=== PATIENT | female | born 1950 | race Caucasian/White ===

== ENCOUNTER 2021-03-26 03:29 | Inpatient (IN) ==
[2021-03-26] MEDS ORDERED: Naloxone 0.4 MG/ML INJ IVP PRN (05:38)
[2021-03-26] MEDS ORDERED: Melatonin 3 MG TABLET PO PRN (05:38)
[2021-03-26] MEDS ORDERED: Ondansetron 4 MG/2 ML VIAL IVP PRN (05:38)
[2021-03-26] MEDS ORDERED: Morphine Sulfate 2 MG/ML SYRINGE IVP PRN (05:46)
[2021-03-26] MEDS ORDERED: Nitroglycerin 0.4 MG TAB.SUBL SL PRN (05:46)
[2021-03-26] MEDS ORDERED: Perflutren Lipid Microsphere 1.3 ML in 0.9 % Sodium Chloride 8.7 ML IVP PRN (05:55)
[2021-03-26] MEDS ORDERED: *HR* Heparin 5,000 UNIT/ML VIAL IVP PRN ×2 (05:56)
[2021-03-26 06:50] LABS: Basophils % 0.3 %; Eosinophils # 0.1 K/mcL (0.0-0.6); Eosinophils % 1.8 %; Hematocrit 38.3 % (35.3-44.9); Immature Granulocytes % 0.3 % (0-4); Lymphocytes # 0.9 K/mcL (0.6-4.6); Lymphocytes % 14.5 %; Mean Corpuscular HGB Conc 33.9 g/dL (31.6-35.5); Mean Corpuscular Hemoglobin 32.5 pg (28.0-33.3); Mean Corpuscular Volume 95.8 fL (83.0-100.0); Mean Platelet Volume 11.3 fL (9.4-12.4); Monocytes # 0.4 K/mcL (0.0-1.3); Monocytes % 5.6 %; Neutrophils # 4.9 K/mcL (1.6-8.9); Platelet Count 176 K/mcL (140-400); Red Cell Distribution Width 12.4 % (11.5-14.5); Segmented Neutrophils % 77.5 %; White Blood Count 6.3 K/mcL (4.3-11.1)
[2021-03-26 06:59] LABS: INR 1.2; Prothrombin Time 13.8 Seconds (9.4-12.1)
[2021-03-26 07:16] LABS: Alanine Aminotransferase 20 Units/L (7-52); Albumin 3.8 g/dL (3.5-5.7); Albumin/Globulin Ratio 1.8 (1.1-2.2); Alkaline Phosphatase 70 Units/L (34-104); Aspartate Amino Transferase 42 Units/L (13-39); BUN/Creatinine Ratio 20 (6-26); Bilirubin,Total 0.4 mg/dL (0.3-1.0); Blood Urea Nitrogen 14 mg/dL (8-23); Calcium 9.6 mg/dL (8.6-10.3); Carbon Dioxide 25 mEq/L (23-29); Chloride 107 mEq/L (98-107); Chol/HDL Ratio 2.8 (0-4.9); Cholesterol 166 mg/dL (< 200); Globulin 2.1 g/dL (2.4-3.5); Glucose 123 mg/dL (70-105); HDL Cholesterol 59 mg/dL (40-59); LDL Cholesterol,Calculated 100 mg/dL (< 100); Osmolality,Calculated 288 (280-300); Potassium 4.1 mEq/L (3.5-5.1); Sodium 138 mEq/L (136-145); Total Protein 5.9 g/dL (6.4-8.9); Triglycerides 34 mg/dL (< 150); Troponin I 0.47 ng/mL (< 0.04); eGFR For African Americans > 60 (> 60); eGFR For Non-African Americans > 60 (> 60)
[2021-03-26] MEDS: Heparin 25,000UNIT/250ML 1/2NS 25,000 UNIT/250 ML IV.SOLN IVC SCH (07:19)
[2021-03-26 07:36] LABS: Activated Partial Thrombo Time > 360.0 Seconds (26.0-36.0)
[2021-03-26] MEDS: Aspirin 81 MG TAB.CHEW PO SCH (08:43)
[2021-03-26] MEDS: rOPINIRole 0.25 MG TABLET PO SCH (19:34)
[2021-03-26] MEDS: Acetaminophen 325 MG TABLET PO PRN (20:03)
[2021-03-26 20:29] LABS: Bilirubin,Urine Negative (Negative); Blood,Urine Trace (Negative); Clarity,Urine Clear (Clear); Color,Urine Light-Yellow (Yellow); Glucose,Urine (UA) Normal (Normal); Ketones,Urine Negative (Negative); Leukocyte Esterase,Urine Small (Negative); Mucus,Urine Few per lpf (None-Few); Nitrite,Urine Negative (Negative); Protein,Urine Negative (Neg-Trace); RBC,Urine 0-3 per hpf (0-3); Specific Gravity,Urine 1.023 (1.010-1.025); Squamous Epithelial Cell,Urine Few per hpf (None-Few); Urobilinogen,Urine Normal (Normal); WBC,Urine 15-30 per hpf (0-3)
[2021-03-27 02:58] LABS: Hematocrit 37.2 % (35.3-44.9); Hemoglobin 12.5 g/dL (11.5-15.4); Mean Corpuscular HGB Conc 33.6 g/dL (31.6-35.5); Mean Corpuscular Hemoglobin 32.6 pg (28.0-33.3); Mean Corpuscular Volume 97.1 fL (83.0-100.0); Mean Platelet Volume 11.5 fL (9.4-12.4); Platelet Count 164 K/mcL (140-400); Red Blood Count 3.83 M/mcL (3.82-4.97); Red Cell Distribution Width 12.6 % (11.5-14.5)
[2021-03-27 03:19] LABS: BUN/Creatinine Ratio 21 (6-26); Blood Urea Nitrogen 15 mg/dL (8-23); Calcium 9.8 mg/dL (8.6-10.3); Carbon Dioxide 29 mEq/L (23-29); Chloride 107 mEq/L (98-107); Glucose 100 mg/dL (70-105); Osmolality,Calculated 287 (280-300); Phosphorous 3.3 mg/dL (2.7-4.5); Potassium 4.1 mEq/L (3.5-5.1); Sodium 138 mEq/L (136-145); eGFR For African Americans > 60 (> 60); eGFR For Non-African Americans > 60 (> 60)
[2021-03-27] MEDS: Loratadine 10 MG TABLET PO SCH (08:01)
[2021-03-27] MEDS: Aspirin 81 MG TAB.CHEW PO SCH (08:01)
[2021-03-27] MEDS: Multivit/Ca/Min/Fe/FA 1 TAB TABLET PO SCH (08:01)
[2021-03-27] MEDS: Cholecalciferol (D-3) 1,000 UNIT (25MCG) TABLET PO SCH (08:01)
[2021-03-27] MEDS: Acetaminophen 325 MG TABLET PO PRN (08:03)
[2021-03-27] MEDS ORDERED: Aspirin Enteric Coated 81 MG Tablet PO SCH (09:00)
[2021-03-27] MEDS: rOPINIRole 0.25 MG TABLET PO SCH (20:23)
[2021-03-28 05:32] LABS: Hematocrit 39.9 % (35.3-44.9); Mean Corpuscular HGB Conc 32.6 g/dL (31.6-35.5); Mean Corpuscular Hemoglobin 31.6 pg (28.0-33.3); Mean Corpuscular Volume 96.8 fL (83.0-100.0); Mean Platelet Volume 11.2 fL (9.4-12.4); Platelet Count 171 K/mcL (140-400); Red Blood Count 4.12 M/mcL (3.82-4.97); Red Cell Distribution Width 12.5 % (11.5-14.5); White Blood Count 6.1 K/mcL (4.3-11.1)
[2021-03-28 05:50] LABS: BUN/Creatinine Ratio 19 (6-26); Blood Urea Nitrogen 15 mg/dL (8-23); Carbon Dioxide 29 mEq/L (23-29); Chloride 105 mEq/L (98-107); Glucose 87 mg/dL (70-105); Osmolality,Calculated 286 (280-300); Potassium 3.9 mEq/L (3.5-5.1); Sodium 138 mEq/L (136-145); eGFR For African Americans > 60 (> 60); eGFR For Non-African Americans > 60 (> 60)
[2021-03-28 08:04] LABS: Estimated Average Glucose 100 mg/dl; Hemoglobin A1C 5.1 %
[2021-03-28] MEDS: Aspirin 81 MG TAB.CHEW PO SCH (08:31)
[2021-03-28] MEDS: Loratadine 10 MG TABLET PO SCH (08:32)
[2021-03-28] MEDS: Multivit/Ca/Min/Fe/FA 1 TAB TABLET PO SCH (08:32)
[2021-03-28] MEDS: Cholecalciferol (D-3) 1,000 UNIT (25MCG) TABLET PO SCH (08:32)
[2021-03-28] MEDS ORDERED: D5% in Water 1,000 ML IVC PRN (12:47)
[2021-03-28] MEDS ORDERED: *HR* Dextrose 50 % in Water (Vial) 50 ML VIAL IVP PRN (12:47)
[2021-03-28] MEDS ORDERED: Dextrose Gel 15 GM/37.5 ML TUBE PO PRN ×2 (12:47)
[2021-03-28] MEDS: Heparin 25,000UNIT/250ML 1/2NS 25,000 UNIT/250 ML IV.SOLN IVC SCH ×2 (13:26→21:43)
[2021-03-28] MEDS ORDERED: Nitroglycerin 1,000 MCG/5 ML VIAL IV ONE (13:33)
[2021-03-28] MEDS ORDERED: *HR* Heparin 10,000 UNIT/10 ML VIAL ONE (13:33)
[2021-03-28] MEDS ORDERED: ISOVUE-370 200 ML INFUS..BTL ONE (13:33)
[2021-03-28] MEDS ORDERED: 0.9 % Sodium Chloride 2,000 ML ONE (13:33)
[2021-03-28] MEDS ORDERED: Heparin 1,000 UNITS/500 mL 500 ML ONE (13:33)
[2021-03-28] MEDS ORDERED: *HR* FentaNYL (PF) 100 MCG/2 ML VIAL ONE (13:39)
[2021-03-28] MEDS ORDERED: *HR* Midazolam HCl 2 MG/2 ML VIAL ONE (13:39)
[2021-03-28] MEDS: Apixaban 5 MG TABLET PO SCH (21:23)
[2021-03-28] MEDS: rOPINIRole 0.25 MG TABLET PO SCH (21:23)
[2021-03-29 03:54] LABS: Hematocrit 39.6 % (35.3-44.9); Hemoglobin 13.3 g/dL (11.5-15.4); Mean Corpuscular HGB Conc 33.6 g/dL (31.6-35.5); Mean Corpuscular Hemoglobin 32.6 pg (28.0-33.3); Mean Corpuscular Volume 97.1 fL (83.0-100.0); Mean Platelet Volume 11.4 fL (9.4-12.4); Platelet Count 161 K/mcL (140-400); Red Blood Count 4.08 M/mcL (3.82-4.97); Red Cell Distribution Width 12.5 % (11.5-14.5); White Blood Count 6.6 K/mcL (4.3-11.1)
[2021-03-29 04:15] LABS: BUN/Creatinine Ratio 20 (6-26); Blood Urea Nitrogen 15 mg/dL (8-23); Calcium 9.8 mg/dL (8.6-10.3); Carbon Dioxide 24 mEq/L (23-29); Chloride 106 mEq/L (98-107); Glucose 83 mg/dL (70-105); Magnesium 2.1 mg/dL (1.6-2.6); Osmolality,Calculated 284 (280-300); Potassium 4.3 mEq/L (3.5-5.1); Sodium 137 mEq/L (136-145); eGFR For African Americans > 60 (> 60); eGFR For Non-African Americans > 60 (> 60)
[2021-03-29 06:39] VITALS: BP 95/63
[2021-03-29] MEDS: Cholecalciferol (D-3) 1,000 UNIT (25MCG) TABLET PO SCH (07:58)
[2021-03-29] MEDS: Multivit/Ca/Min/Fe/FA 1 TAB TABLET PO SCH (07:58)
[2021-03-29] MEDS: Apixaban 5 MG TABLET PO SCH (07:58)
[2021-03-29] MEDS: Loratadine 10 MG TABLET PO SCH (07:59)
[2021-03-29] MEDS ORDERED: Sennosides/Docusate Sodium TABLET PO PRN (08:18)
== END 2021-03-29 13:15 | disposition home or self-care (01) | DRG 282 ==
LOC: 2NENU → SUATTDRO 05:29
PROVIDERS: ADMIT Student in an Organized Health Care Education/Training Program; ATTEND Internal Medicine

== ENCOUNTER 2021-07-26 11:31 | Observation (INO) ==
[2021-07-26] MEDS ORDERED: 0.9 % Sodium Chloride 1,000 ML IVC ONE (12:07)
[2021-07-26 14:37] LABS: Basophils % 0.7 %; Eosinophils # 0.4 K/mcL (0.0-0.6); Eosinophils % 9.4 %; Hematocrit 32.4 % (35.3-44.9); Hemoglobin 10.7 g/dL (11.5-15.4); Immature Granulocytes % 0.2 % (0-4); Lymphocytes # 1.2 K/mcL (0.6-4.6); Lymphocytes % 27.2 %; Mean Corpuscular Hemoglobin 32.3 pg (28.0-33.3); Mean Corpuscular Volume 97.9 fL (83.0-100.0); Mean Platelet Volume 11.2 fL (9.4-12.4); Monocytes # 0.3 K/mcL (0.0-1.3); Monocytes % 6.4 %; Neutrophils # 2.6 K/mcL (1.6-8.9); Platelet Count 162 K/mcL (140-400); Red Blood Count 3.31 M/mcL (3.82-4.97); Red Cell Distribution Width 12.8 % (11.5-14.5); Segmented Neutrophils % 56.1 %; White Blood Count 4.6 K/mcL (4.3-11.1)
[2021-07-26 15:00] LABS: INR 1.1; Prothrombin Time 12.2 Seconds (9.4-12.1)
[2021-07-26 15:02] LABS: Activated Partial Thrombo Time 27.6 Seconds (26.0-36.0)
[2021-07-26] MEDS ORDERED: *HR* Propofol 200 MG/20 ML VIAL IVP ONE ×2 (15:21→16:24)
[2021-07-26] MEDS ORDERED: Lidocaine -MPF 2% 5 ML VIAL ONE (15:22)
[2021-07-26 15:46] LABS: Alanine Aminotransferase 5 Units/L (7-52); Albumin 3.4 g/dL (3.5-5.7); Albumin/Globulin Ratio 1.9 (1.1-2.2); Alkaline Phosphatase 58 Units/L (34-104); Aspartate Amino Transferase 12 Units/L (13-39); BUN/Creatinine Ratio 18 (6-26); Bilirubin,Total 0.4 mg/dL (0.3-1.0); Blood Urea Nitrogen 10 mg/dL (8-23); Carbon Dioxide 25 mEq/L (23-29); Chloride 111 mEq/L (98-107); Globulin 1.8 g/dL (2.4-3.5); Glucose 96 mg/dL (70-105); Osmolality,Calculated 291 (280-300); Potassium 4.2 mEq/L (3.5-5.1); Sodium 141 mEq/L (136-145); Total Protein 5.2 g/dL (6.4-8.9); Troponin I < 0.03 ng/mL (< 0.04); eGFR For African Americans > 60 (> 60); eGFR For Non-African Americans > 60 (> 60)
[2021-07-26] MEDS ORDERED: Ondansetron 4 MG/2 ML VIAL IVP PRN (16:05)
[2021-07-26] MEDS ORDERED: Naloxone 0.4 MG/ML INJ IVP PRN (16:05)
[2021-07-26] MEDS ORDERED: *HR* EPINEPHrine 1 MG/10 ML SYRINGE INTRATRACH PRN (16:30)
[2021-07-26] MEDS: Pantoprazole 40 MG VIAL IVP SCH (16:56)
[2021-07-26] MEDS: 0.9 % Sodium Chloride 1,000 ML IVC SCH (16:56)
[2021-07-26 17:39] LABS: Calcium 8.9 mg/dL (8.6-10.3)
[2021-07-26] MEDS: rOPINIRole 0.25 MG TABLET PO SCH (19:53)
[2021-07-27] MEDS: 0.9 % Sodium Chloride 1,000 ML IVC SCH (02:48)
[2021-07-27 02:50] LABS: Basophils % 0.6 %; Eosinophils # 0.5 K/mcL (0.0-0.6); Eosinophils % 10.8 %; Hematocrit 23.9 % (35.3-44.9); Hemoglobin 7.6 g/dL (11.5-15.4); Immature Granulocytes % 0.4 % (0-4); Lymphocytes # 1.6 K/mcL (0.6-4.6); Lymphocytes % 32.3 %; Mean Corpuscular HGB Conc 31.8 g/dL (31.6-35.5); Mean Corpuscular Volume 97.6 fL (83.0-100.0); Mean Platelet Volume 11.6 fL (9.4-12.4); Monocytes # 0.4 K/mcL (0.0-1.3); Monocytes % 8.3 %; Neutrophils # 2.4 K/mcL (1.6-8.9); Platelet Count 131 K/mcL (140-400); Red Blood Count 2.45 M/mcL (3.82-4.97); Red Cell Distribution Width 12.8 % (11.5-14.5); Segmented Neutrophils % 47.6 %; White Blood Count 4.9 K/mcL (4.3-11.1)
[2021-07-27 03:11] LABS: BUN/Creatinine Ratio 20 (6-26); Blood Urea Nitrogen 11 mg/dL (8-23); Calcium 8.3 mg/dL (8.6-10.3); Carbon Dioxide 23 mEq/L (23-29); Chloride 112 mEq/L (98-107); Glucose 97 mg/dL (70-105); Magnesium 1.7 mg/dL (1.6-2.6); Osmolality,Calculated 285 (280-300); Phosphorous 2.7 mg/dL (2.7-4.5); Potassium 3.7 mEq/L (3.5-5.1); Sodium 138 mEq/L (136-145); eGFR For African Americans > 60 (> 60); eGFR For Non-African Americans > 60 (> 60)
[2021-07-27] MEDS: Pantoprazole 40 MG VIAL IVP SCH (05:09)
[2021-07-27] MEDS: rOPINIRole 0.25 MG TABLET PO SCH (07:38)
[2021-07-27] MEDS ORDERED: Acetaminophen 325 MG TABLET PO ONE (07:57)
[2021-07-27 10:22] LABS: Hematocrit 24.2 % (35.3-44.9); Hemoglobin 8.2 g/dL (11.5-15.4)
[2021-07-27 11:05] VITALS: BP 103/56; PULSE 84; TEMP 98; O2SAT 98
== END 2021-07-27 14:02 | disposition home or self-care (01) ==
LOC: EMEROOARM 11:31 → 3BNU 11:31 → SUATTDRO 14:36 → 3BNU 15:45
PROVIDERS: ADMIT Student in an Organized Health Care Education/Training Program; ATTEND Internal Medicine